=== PATIENT | female | born 1935 | race Caucasian/White ===

== ENCOUNTER 2022-05-07 12:06 | Observation (INO) | payer OTHER, SELFPAY ==
[2022-05-07] VITALS (18 sets, daily range): BP systolic 94–144; BP diastolic 41–74; PULSE 67–101; RESP 9–20; TEMP 36.7–36.8; O2SAT 96–100
--- NOTE | 2022-05-07 | ECG_ITS ---
Measurements Intervals [place] Rate: 68 P: 81 MD: 163 QRS: -15 QRSD: 98 T: 42 QT: 423 QTc: 452 Interpretive Statements SINUS RHYTHM ST-T WAVE ABNORMALITY IN ANTEROLATERAL LEADS- CONSIDER ISCHEMIA BASELINE ARTIFACT- I, II, AVR, AVL, AVF, V1 ABNORMAL ECG NO PREVIOUS ECG AVAILABLE FOR COMPARISON Electronically Signed On 05-07-2022 15:10:29 APPIAN BPM DEVELOPER by Silvano Vasquez D.O.
--- NOTE | ~2022-05-07 | CT_ITS ---
EXAMINATION: CT brain wo con DATE: 05/07/2022 13:42 INDICATION: Syncopal. Altered mental status. TECHNIQUE: Computed tomography (CT) of the head was performed without intravenous contrast. Sagittal and coronal reconstructions were performed. The mA was adjusted according to patient size. Iterative reconstruction technique was employed. The dose-length product was 1362.00 mGy-cm. COMPARISON: None FINDINGS: No acute intracranial hemorrhage, acute infarction or abnormal extra axial fluid collection. Small ol d lacunar infarcts versus prominent perivascular space at the inferior aspects of the bilateral basal ganglia. There is mild to moderate scattered white matter hypoattenuation consistent with chronic sm all vessel ischemic disease. Symmetric prominence of the sulci and ventricles consistent with moderat e age-appropriate diffuse cerebral volume loss. No mass/mass effect. Changes of bilateral intraocular lens replacement. The orbits, paranasal sinuses and mastoid air cells are normal. Intracranial calci fied cerebral atherosclerosis is noted. Moderate to severe spondylosis in the partially visualized ce rvical spine. IMPRESSION: 1. 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 No acute intracranial process. 2. Age-related changes including moderate diffuse volume loss and mild to moderate scattered white ma tter hypoattenuation consistent with chronic small vessel ischemic disease. Reviewed, dictated and finalized at location A. NEWS DIRECTOR IMPRESSION: 1. 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 No acute intracranial process. 2. Age-related changes including moderate diffuse volume loss and mild to moder ate scattered white matter hypoattenuation consistent with chronic small vessel ischemic disease.
--- NOTE | ~2022-05-07 | XR_ITS ---
EXAMINATION: XR chest 1V portable DATE: 05/07/2022 12:51 INDICATION: Syncope. TECHNIQUE: A single frontal view of the chest was obtained. COMPARISON: None. FINDINGS: The patient is rotated to her left. Calcified pulmonary nodules and calcified hilar lymph n odes are consistent with old granulomatous disease. There is no pneumonia, pleural effusion, 4 pneumo thorax. The heart size is normal. Surgical clips in the right upper quadrant are likely from cholecys tectomy. IMPRESSION: 1. No acute cardiopulmonary disease. Reviewed, dictated and finalized at location A. OTECHNICAL SPECIALIST
--- NOTE | 2022-05-07 12:13 | ED.SYNCOPE ---
HPI - Syncope General Chief Complaint: Altered Mental Status Stated Complaint: syncope Source: EMS Mode of arrival: EMS Limitations: dementia History of Present Illness HPI narrative: Patient is an 86-year-old female presenting to the emergency department via EMS for evaluation following a syncopal event. Patient was reportedly sitting at the lunch table at her memory care facility when she had a loss of conscious. Unknown if the patient was sitting or standing. Unknown if there was head trauma. Patient at baseline is oriented to person, not to place or time. Secondary to her dementia she is unable to provide history. Pt with dried emesis on sweater. Report was mostly obtained from EMS paramedics with whom I spoke directly. Patient noted to be slightly hypotensive the time of their arrival 100/50, IV placed and left forearm and IV fluids initiated. Patient's glucose was normal. Other vital signs stable. Patient was awake and alert, mentating at baseline without any focal deficits noted for EMS crew. Per records sent from [facility] where the patient resides, patient with history of anxiety, dementia, diverticulosis, acid reflux without esophagitis, hypertension, irritable bowel syndrome with constipation, and vitamin D deficiency. No known drug allergies. Pt is full code per chart review. Related Data Allergies Allergy/AdvReac Type Severity Reaction Status Date / Time No Known Allergies Allergy Verified 05/07/22 12:54 Review of Systems Review of Systems: ROS unobtainable: Yes unobtainable due to medical condition and unobtainable due to mental status [facility] Social History Social History (Updated 05/07/22 @ 13:00 by Grecia Fonseca MD) Smoking status: Never smoker Alcohol intake: never Substance use: never Living arrangements: care home Gender identity (if verbalized by the patient): Female Exam Narrative: GENERAL: Awake, alert, conversant HEAD: Normocephalic, atraumatic. EYES: PERRLA and EOMI. ENT: Nares clear, no rhinorrhea or epistaxis. Mucous membranes moist. NECK: Supple. CHEST: No respiratory distress, breathing even and non labored HEART: Regular rate, sinus rhythm ABDOMEN:Non distended, non tender EXTREMITIES: Normal range of motion. No edema. SKIN: Warm, dry, no rash. NEURO:No focal deficits. Alert and oriented x1 Course Vital Signs Vital signs: Vital Signs Temperature 36.7 C 05/07/22 12:27 Pulse Rate 74 05/07/22 12:27 Respiratory Rate 14 05/07/22 12:27 Blood Pressure 108/59 L 05/07/22 12:27 Pulse Oximetry 100 05/07/22 12:27 Temperature 36.7 C 05/07/22 18:36 Pulse Rate 80 05/07/22 18:17 Respiratory Rate 18 05/07/22 18:17 Blood Pressure 133/41 L 05/07/22 18:17 Pulse Oximetry 99 05/07/22 18:17 MDM - Syncope MDM Narrative Medical decision making narrative: Patient is an 86-year-old female with a history of dementia presenting to the emergency department for evaluation of witnessed syncope and collapse. At the time of my assessment, patient is awake alert and oriented to person, not to place or time. Apparently this is her baseline. She is noted to be slightly hypotensive but fluid responsive. Blood cultures and lactic acid was drawn. I reviewed the patient's chart from the care home and she has not been seen previously at this facility. Patient with mild leukocytosis with left shift. Her urinalysis is consistent with urinary tract infection. D-dimer is not elevated, thus I do not believe this to be an aortic pathology or consistent with pulmonary embolism. CT of the chest is not indicated. CT head with chronic changes. No severe electrolyte derangement. Patient does have a mild troponin elevation. Unknown etiology for this. Considered arrhythmia causing syncope versus chronic elevation secondary to mild anemia or current infection, no previous baseline on the patient. We will continue to trend this. After th
[2022-05-07 12:48] LABS: Glucose Point of Care 112 mg/dl (65-105)
[2022-05-07 13:05] LABS: Basophils Percent Auto 0.3 % (0.2-1.2); Eosinophils Percent Auto 0.2 % (0-4.4); Hematocrit 43.7 % (37.0-47.0); Hemoglobin 14.7 g/dL (12.0-15.0); Immature Granulocyte Absolute 0.04 K/mm3 (0.00-0.031); Immature Granulocyte Percent A 0.3 % (0-0.5); Immature Platelet Fraction Pct 11.5 % (0.9-11.2); Lymphocytes Absolute Auto 0.84 K/mm3 (0.9-3.2); Lymphocytes Percent Auto 7.1 % (18.3-44.2); Mean Corpuscular HGB Conc 33.6 g/dl (32-36); Mean Corpuscular Hemoglobin 32.8 pg (26-34); Mean Corpuscular Volume 97.5 fl (80-100); Monocytes Absolute Auto 0.7 K/mm3 (0.1-0.6); Monocytes Percent Auto 5.8 % (2.6-8.5); Neutrophils Absolute Auto 10.1 K/mm3 (1.3-6.7); Neutrophils Percent Auto 86.3 % (45.5-73.1); Platelet Count Result 204 k/mm3 (150-375); Red Blood Count 4.48 M/mm3 (4.2-5.4); Red Cell Distribution Width 11.9 % (11.5-14.5); White Blood Count 11.8 K/mm3 (4.5-10.0)
[2022-05-07 13:12] LABS: INR 0.9; Partial Thromboplastin Time 20.3 SECONDS (22.3-36.8); Prothrombin Time 12.1 Seconds (11.1-14.7)
[2022-05-07 13:52] LABS: D Dimer 0.37 ug/mL (<0.48)
[2022-05-07] MEDS: SODIUM CHLORIDE 0.9% IV 500 ML 999 ML IV CONT (14:50)
[2022-05-07 14:57] LABS: Appearance Urine Cloudy (Clear); Bilirubin Urine Negative (Negative); Blood Urine Trace-intact (Negative); Color Urine Yellow (Yellow); Glucose Urine UA Negative (Negative); Ketones Urine Trace mg/dL (Negative); Leukocyte Esterase Ur 3+ LEU/UL (Negative); Nitrate Urine Positive (Negative); Protein Urine 2+ mg/dL (Negative); Specific Grav Ur >= 1.030 (1.001-1.035)
[2022-05-07 15:06] LABS: Bacteria Urine 4+ /hpf; Hyaline Casts Urine 30-49 /lpf; Lactic Acid Reflex 1.2 mmol/L (0.7-2.0); Mucus Urine Heavy /lpf; RBC Urine >75 /hpf (0-2); Squamous Epithelial Cell Urine Few /hpf (Few); WBC Urine >75 /hpf
[2022-05-07 15:08] LABS: Add Urine Microscopic? YES; Alanine Aminotransferase 12 U/L (6-35); Albumin Level 3.9 g/dL (3.5-5.1); Alkaline Phosphatase 53 U/L (38-126); Anion Gap 5 mmol/L (8-16); Aspartate Amino Transferase 20 U/L (14-36); Bilirubin,Total 0.6 mg/dL (0.2-1.3); Blood Urea Nitrogen 22 mg/dL (7-17); Calcium 10.4 mg/dL (8.4-10.2); Carbon Dioxide 29 mmol/L (22-30); Chloride 97 mmol/L (98-107); Estimated CRCL calculation 20 ml/min; Estimated Glomerular Filt Rate 33; Glucose 105 mg/dL (65-110); Potassium 3.9 mmol/L (3.4-5.0); Sodium 131 mmol/L (137-145)
[2022-05-07 15:22] LABS: NT Pro B Type Natriuretic Pept 1540 pg/mL (19.9-100); Troponin I 0.061 ng/mL (0.000-0.034)
--- NOTE | 2022-05-07 16:45 | PC.NURSE ---
Patient seen vomiting in room. EDP Marian notified.
[2022-05-07] MEDS: ONDANSETRON INJ 4 MG/2 ML VIAL IV PUSH ×2 (17:04→23:51)
[2022-05-07 17:27] LABS: SARS-CoV-2 RNA PCR Negative
--- NOTE | 2022-05-07 17:45 | PC.NURSE ---
Patient vomited again in room. EDP Marian notified.
[2022-05-07] MEDS: LORazepam INJ (*CRX) 2 MG/ML VIAL 0.5 MG IV PUSH (18:16)
--- NOTE | 2022-05-07 18:40 | ADMGEN ---
This patient, Irma Massey, was admitted to IMU Room 204-01. Patient/family oriented to hospital policies and general routines including ID bracelet, bed and alarms, visiting hours, pain management, procedures, bathroom and other care routines, personal items, smoking policy, room service/diet, and visiting hours. Information on how to activate the Rapid Response Team has been discussed. Patient/Family are encouraged to report perceived risks to care and to ask questions if they do not understand what they are told or what they should do.
[2022-05-07 19:12] LABS: Troponin I 0.046 ng/mL (0.000-0.034)
--- NOTE | 2022-05-07 20:47 | PM.IMHP ---
H&P: HPI History of Present Illness Date/Time: 05/07/22 20:47 Chief Complaint: syncope Narrative: this is an 86 year old female who resides in a memory care center.She was brought by the ems to be evaluated after she has a syncopal episode. It was unclear if she fell out of the chair or had been standing. It was not witnessed and it was unclear if she hit her head .Her baseline orientation is orientated to person. She has a hx of dementia and is a poor historian.She was afebrile and her bp was 108/59 . She was given iv fluids and her bp responded with the fluids . her wbc was noted to be 11.8.blood sugar 112. sodium 131.Head ct was read as 1. 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 No acute intracranial process. 2. Age-related changes including moderate diffuse volume loss and mild to moderate scattered white matter hypoattenuation consistent with chronic small vessel ischemic disease.Ches xray was read as no acute cardiopulmonary disease. The patient was started on rocephin for a uti . Cardiology was consulted from er due to the syncopal episode.her troponin was elevated at 0.053 She is pierre admiting for observation status on the date of service 05/07/22 Review of Systems Review of Systems: see hpi All systems reviewed & are unremarkable except as noted in HPI and below Constitutional: Constitutional: Reports as per HPI and Reports no additional constitutional complaints Eyes: Eyes: Reports as per HPI and Reports no additional eye complaints ENT: Reports system reviewed and no additional complaints, except as documented and Reports Normal hearing present Cardiovascular: Cardiovascular: Reports no additional cardiovascular complaints Respiratory: Respiratory: Reports no additional respiratory complaints and Reports no additional respiratory complaints Gastrointestinal: Gastrointestinal: Reports as per HPI and Reports no additional gastrointestinal complaints Musculoskeletal: Musculoskeletal: Reports no additional musculoskeletal complaints Integumentary/Breasts: Skin/Breast: Reports system reviewed and no additional complaints, except as docu and Reports as per HPI Neurologic: Reports system reviewed and no additional complaints, except as documented, Reports as per HPI and Reports Normal hearing present Psychiatric: Psychiatric: Reports no additional psychiatric complaints and Reports as per HPI Endocrine: Endocrine: Reports no additional endocrine complaints Hematologic/Lymphatic: Hematologic/Lymphatic: Reports no additional hematologic/lymphatic complaints Allergic/Immunologic: Allergic/Immunologic: Reports no additional allergic/immunologic complaints PMFSH Past Medical History Medical History (Updated 05/08/22 @ 02:00 by Jaqueline Richardson NP) Anxiety Dementia Diverticulosis Hyperlipidemia Hypertension Surgical History Surgical History (Updated 05/08/22 @ 02:00 by Jaqueline Richardson NP) Surgical history unknown Family History Family History (Updated 05/08/22 @ 02:20 by Jaqueline Richardson NP) Unknown No problems noted. Social History Social History (Updated 05/08/22 @ 02:23 by Jaqueline Richardson NP) Social History: She resides at [facility]. Living will stated full code including intubation. son Galdino listed as contact . listed as single and retired Smoking status: Never smoker Alcohol intake: never Substance use: never Living arrangements: alf Gender identity (if verbalized by the patient): Female Meds Home Medications and Allergies Allergies Allergy/AdvReac Type Severity Reaction Status Date / Time No Known Allergies Allergy Verified 05/07/22 12:54 Vital Signs Vital Signs - 24 hr 05/07/22 12:27 05/07/22 13:15 05/07/22 13:15 Temperature 36.7 C Pulse Rate 74 76 71 Respiratory Rate 14 Blood Pressure 108/59 L 94/43 L 96/50 L Pulse Oximetry 100 05/07/22
[2022-05-07] MEDS: SODIUM CHLORIDE 0.9% IV 1,000 ML 125 ML IV CONT (21:13)
[2022-05-07 22:49] LABS: Troponin I 0.053 ng/mL (0.000-0.034)
[2022-05-08] VITALS (13 sets, daily range): BP systolic 127–139; BP diastolic 52–64; PULSE 80–101; RESP 16–22; TEMP 36.4–37.3; O2SAT 18–100
[2022-05-08 04:25] LABS: Basophils Percent Auto 0.1 % (0.2-1.2); Hematocrit 35.3 % (37.0-47.0); Immature Granulocyte Absolute 0.07 K/mm3 (0.00-0.031); Immature Granulocyte Percent A 0.6 % (0-0.5); Lymphocytes Absolute Auto 0.52 K/mm3 (0.9-3.2); Lymphocytes Percent Auto 4.4 % (18.3-44.2); Mean Corpuscular Volume 94.1 fl (80-100); Mean Platelet Volume 11.7 fl (7.4-10.4); Monocytes Absolute Auto 0.4 K/mm3 (0.1-0.6); Monocytes Percent Auto 3.5 % (2.6-8.5); Neutrophils Absolute Auto 10.8 K/mm3 (1.3-6.7); Neutrophils Percent Auto 91.4 % (45.5-73.1); Platelet Count Result 181 k/mm3 (150-375); Red Blood Count 3.75 M/mm3 (4.2-5.4); Red Cell Distribution Width 11.4 % (11.5-14.5); White Blood Count 11.8 K/mm3 (4.5-10.0)
[2022-05-08 04:39] LABS: Alanine Aminotransferase 11 U/L (6-35); Albumin Level 3.2 g/dL (3.5-5.1); Alkaline Phosphatase 48 U/L (38-126); Anion Gap 6 mmol/L (8-16); Aspartate Amino Transferase 18 U/L (14-36); Bilirubin,Total 0.4 mg/dL (0.2-1.3); Blood Urea Nitrogen 20 mg/dL (7-17); Calcium 9.3 mg/dL (8.4-10.2); Carbon Dioxide 25 mmol/L (22-30); Chloride 106 mmol/L (98-107); Estimated CRCL calculation 21 ml/min; Estimated Glomerular Filt Rate 36; Glucose 136 mg/dL (65-110); Magnesium 1.8 mg/dL (1.6-2.3); Potassium 3.7 mmol/L (3.4-5.0); Sodium 137 mmol/L (137-145)
[2022-05-08 04:52] LABS: Troponin I 0.153 ng/mL (0.000-0.034)
[2022-05-08 04:58] LABS: Burr Cells 1+ (NORMAL); Ovalocytes 1+ (NORMAL); Platelet Estimate Adequate (Adequate)
[2022-05-08 04:59] LABS: Schistocytes None Seen (NORMAL)
[2022-05-08] MEDS: ONDANSETRON INJ 4 MG/2 ML VIAL IV PUSH (05:38)
[2022-05-08] MEDS: SODIUM CHLORIDE 0.9% IV 1,000 ML 125 ML IV CONT ×3 (05:38→23:00)
--- NOTE | 2022-05-08 08:00 | ECHO_ITS ---
Patient Info Name: Irma Massey Age: 86 years : 1935 Gender: Female Ht: 63 in Wt: 116 lbs BSA: 1.53 m2 HR: 85 bpm BP: 138 / 53 mmHg Heart Rhythm: Sinus Rhythm Technical Quality: Fair Exam Date: 05/08/2022 7:39 AM Exam Location: [facility] Patient Status: Inpatient Admit Date: 05/07/2022 Staff Ordering Physician: Grecia Fonseca MD Java Lead Developer: Tracy Sanabria RDCS Attending Provider: Parker Salinas MD Referring Physician: Marian BRIONES; Exam Type: CA echo doppler color flow Study Info Indications - elevated troponin, ekg changes Complete two-dimensional, color flow and Doppler transthoracic echocardiogram is performed. Summary 1. Complete two-dimensional, color flow and Doppler transthoracic echocardiogram is performed. 2. Left ventricular chamber dimension is normal. 3. Left ventricular systolic function is hyperdynamic, estimated at >70%. 4. There is mildly increased left ventricular wall thickness. 5. The left ventricular diastolic function is grade I diastolic dysfunction. 6. Right ventricular systolic function is normal. 7. There is moderate aortic valve calcification. 8. The mitral valve annulus is mildly calcified. 9. There is small anterior pericardial effusion. Left Ventricle Left ventricular chamber dimension is normal. Left ventricular systolic function is hyperdynamic, estimated at >70%. There is mildly increased left ventricular wall thickness. The left ventricular diastolic function is grade I diastolic dysfunction. Right Ventricle Right ventricular chamber dimension is normal. Right ventricular systolic function is normal. Left Atria Left atrial chamber dimension is normal. Right Atria Right atrial chamber dimension is normal. Atrial Septum Intact interatrial septum visualized by color flow imaging. Aortic Valve The aortic valve is probable trileaflet. There is no aortic valve stenosis. There is no aortic valve regurgitation. There is moderate aortic valve calcification. Pulmonic Valve The pulmonic valve is not well visualized. Mitral Valve The mitral valve has normal leaflets. There is no mitral valve stenosis. There is trace mitral valve regurgitation. The mitral valve annulus is mildly calcified. Tricuspid Valve There is trace tricuspid valve regurgitation. Pericardium/Pleural There is small anterior pericardial effusion. Inferior Vena Cava Normal inferior vena cava with >50% collapse upon inspiration consistent with normal right atrial pressure, 3 mmHg. Aorta The aortic root size at the sinus of Valsalva is normal. Left Ventricular Outflow Tract Name Value Normal LVOT 2D LVOT Diameter 2.0 cm LVOT Doppler LVOT Peak Gradient 7 mmHg LVOT Mean Gradient 3 mmHg LVOT VTI 24 cm LVOT VTI/AV VTI Ratio 0.7 LVOT Stroke Volume 77 ml LVOT CO 7.6 l/min LVOT CI 5.0 l/min/m2 Pulmonic Valve ---------
--- NOTE | 2022-05-08 10:46 | PM.CNCAR ---
Assessment and Plan Assessment and plan (1) Dementia: Code(s): F03.90 - Unspecified dementia, unspecified severity, without behavioral disturbance, psychotic disturbance, mood disturbance, and anxiety Status: Acute Assessment and Plan: Significant dementia (2) Elevated troponin: Code(s): R77.8 - Other specified abnormalities of plasma proteins Status: Acute Assessment and Plan: Not related to acute coronary syndrome. Likely secondary predominantly to a combination of UTI and CKD (3) Acute UTI: Code(s): N39.0 - Urinary tract infection, site not specified Status: Acute Assessment and Plan: On antibiotic (4) Syncope and collapse: Code(s): R55 - Syncope and collapse Status: Acute Assessment and Plan: Uncertain if she truly had a syncopal episode or not. She is being treated for urinary tract infection. 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 Check a 2D echocardiogram Doppler. History of Present Illness History of Present Illness Consult date/time: 05/08/22 10:46 Requesting physician: Grecia Fonseca MD Consult reason: Other (Syncope, elevated troponin) Reason For Visit: Syncope & Collapse, Sepsis, UTI Narrative: Date of service 05/08/2022 Reason for consultation syncope, elevated troponins Requesting provider: Dr. Fonseca History: Patient is a 86-year-old female who came to hospital following a possible syncopal episode. Details are found through reviewing the chart record as the patient is awake but currently not verbal. She is reportedly a and O x1. She has significant dementia at baseline. It is uncertain if this patient passed out or fell but reportedly was having altered mental status and was brought to the hospital. Initial troponins were minimally elevated. EKG shows some anterior T-wave abnormalities but she was not complaining of any chest pain. She is found have a urinary tract infection and has received antibiotics. No documented history of chest pain, shortness of breath, paroxysmal nocturnal dyspnea, orthopnea, edema or palpitations. Review of Systems Review of Systems: All systems reviewed & are unremarkable except as noted in HPI and below Constitutional: Constitutional: Denies body ache(s) Eyes: Eyes: Denies blurry vision ENT: Reports Normal hearing present Cardiovascular: Cardiovascular: Denies chest pain Respiratory: Respiratory: Denies hemoptysis Gastrointestinal: Gastrointestinal: Denies hematemesis Genitourinary: Genitourinary: Denies hematuria Musculoskeletal: Musculoskeletal: Denies arthralgias Integumentary/Breasts: Skin/Breast: Denies erythema Neurologic: Denies vertigo Psychiatric: Psychiatric: Denies anxiety Endocrine: Endocrine: Denies excessive sweating Hematologic/Lymphatic: Hematologic/Lymphatic: Denies easy bleeding Allergic/Immunologic: Allergic/Immunologic: Denies GI upset with certain foods and Denies lip swelling PMFSH Past Medical History Medical History (Updated 05/08/22 @ 10:51 by Dillan Borges MD) Anxiety Dementia Diverticulosis Hyperlipidemia Hypertension Surgical History Surgical History (Updated 05/08/22 @ 02:00 by Jaqueline Richardson NP) Surgical history unknown Family History Family History Unknown No problems noted. Social History Social History (Updated 05/08/22 @ 02:23 by Jaqueline Richardson NP) Social History: She resides at [facility]. Living will stated full code including intubation. son Galdino listed as contact . listed as single and retired Smoking status: Never smoker Alcohol intake: never Substance use: never Living arrangements: prison Gender identity (if verbalized by the patient): Female Comments Family medical history: No documented coronary disease M
[2022-05-08] MEDS: FAMOTIDINE 20 MG/2 ML VIAL IV PUSH ×2 (11:10→20:53)
--- NOTE | 2022-05-08 16:21 | PCPTNOTE ---
Attempted pt evaluation, pt unarousable. RN aware. Will follow.
--- NOTE | 2022-05-08 16:59 | PM.IMPN ---
Progress Note: A&P Assessment and Plan (1) Syncope and collapse: Code(s): R55 - Syncope and collapse Status: Acute Assessment and Plan: -Check orthostatic bp every shift -may be related to infectious process -could be related to dehydration - continue to monitor on tele -ed consulted cardiology - echo ordered carotid dopplers ordered 05/08/2022 interval history: 86-year-old female presented with syncopal episode unfortunately unable to provide any review of symptoms, patient was seen by Cardiology unable to assess as patient is not able to provide details, consent the patient may have UTI resulting in in her symptoms, according to the family patient is not eating not taking her med and not cooperating. patient has end-stage dementia, today discussed with the patient's son who is POA, will consult hospice for further recommendation, (2) Acute UTI: Code(s): N39.0 - Urinary tract infection, site not specified Status: Acute Assessment and Plan: -rocephin ordered - preston antibiotics to cultures -blood and urine cultures pending (3) Nausea & vomiting: Code(s): R11.2 - Nausea with vomiting, unspecified Status: Acute Assessment and Plan: - continue with iv fluids -continue with zofran - iv pepcid (4) Hypertension: Code(s): I10 - Essential (primary) hypertension Status: Acute Assessment and Plan: - Home medications have not been verified and her bp is low tonight . restart bp home medications if bp allows . (5) Dementia: Code(s): F03.90 - Unspecified dementia, unspecified severity, without behavioral disturbance, psychotic disturbance, mood disturbance, and anxiety Status: Acute Assessment and Plan: Patient is typically o and times person (6) Hyperlipidemia: Code(s): E78.5 - Hyperlipidemia, unspecified Status: Acute Assessment and Plan: - Continue with home medications once they have been reviewed. Subjective Date/time seen: 05/08/22 16:59 syncope HPI-Narrative: this is an 86 year old female who resides in a memory care center.She was brought by the ems to be evaluated after she has a syncopal episode. It was unclear if she fell out of the chair or had been standing. It was not witnessed and it was unclear if she hit her head .Her baseline orientation is orientated to person. She has a hx of dementia and is a poor historian.She was afebrile and her bp was 108/59 . She was given iv fluids and her bp responded with the fluids . her wbc was noted to be 11.8.blood sugar 112. sodium 131.Head ct was read as??1. 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 No acute intracranial process. 2. Age-related changes including moderate diffuse volume loss and mild to moderate scattered white matter hypoattenuation consistent with chronic small vessel ischemic disease.Ches xray was read as no acute cardiopulmonary disease. The patient was started on rocephin? for a uti . Cardiology was consulted from er due to the syncopal episode.her troponin was elevated at 0.053 She is pierre admiting for observation status on the date of service 05/07/22 05/08/2022 interval history: 86-year-old female presented with syncopal episode unfortunately unable to provide any review of symptoms, patient was seen by Cardiology unable to assess as patient is not able to provide details, consent the patient may have UTI resulting in in her symptoms, according to the family patient is not eating not taking her med and not cooperating. patient has end-stage dementia, today discussed with the patient's son who is POA, will consult hospice for further recommendation, Review of Systems Review of Systems: ROS unobtainable: Yes unobtainable due to mental status Exam Narrative: elderly frail Patient is comfortable, NAD HEENT: eyes are clear and none icteric LUNGS: normal
[2022-05-09] VITALS (9 sets, daily range): BP systolic 105–148; BP diastolic 44–82; PULSE 81–102; RESP 16–20; TEMP 36.4–37.4; O2SAT 98–100; BMI 20.6
[2022-05-09 04:22] LABS: Hematocrit 32.5 % (37.0-47.0); Hemoglobin 11.1 g/dL (12.0-15.0); Mean Corpuscular HGB Conc 34.2 g/dl (32-36); Mean Corpuscular Volume 93.7 fl (80-100); Mean Platelet Volume 11.8 fl (7.4-10.4); Platelet Count Result 165 k/mm3 (150-375); Red Blood Count 3.47 M/mm3 (4.2-5.4); Red Cell Distribution Width 11.8 % (11.5-14.5); White Blood Count 14.4 K/mm3 (4.5-10.0)
[2022-05-09 04:48] LABS: Anion Gap 4 mmol/L (8-16); Blood Urea Nitrogen 17 mg/dL (7-17); Calcium 8.9 mg/dL (8.4-10.2); Carbon Dioxide 24 mmol/L (22-30); Chloride 112 mmol/L (98-107); Estimated CRCL calculation 26 ml/min; Estimated Glomerular Filt Rate 47; Glucose 100 mg/dL (65-110); Magnesium 1.7 mg/dL (1.6-2.3); Potassium 3.2 mmol/L (3.4-5.0); Sodium 140 mmol/L (137-145)
[2022-05-09] MEDS: SODIUM CHLORIDE 0.9% IV 1,000 ML 125 ML IV CONT ×2 (06:40→08:23)
[2022-05-09] MEDS: FAMOTIDINE 20 MG/2 ML VIAL IV PUSH (08:22)
--- NOTE | 2022-05-09 09:12 | PM.PNCARD ---
Progress Note: A&P Assessment and Plan (1) Dementia: Code(s): F03.90 - Unspecified dementia, unspecified severity, without behavioral disturbance, psychotic disturbance, mood disturbance, and anxiety Status: Acute Assessment and Plan: Significant dementia (2) Elevated troponin: Code(s): R77.8 - Other specified abnormalities of plasma proteins Status: Acute Assessment and Plan: Not related to acute coronary syndrome. Likely secondary predominantly to a combination of UTI and CKD (3) Acute UTI: Code(s): N39.0 - Urinary tract infection, site not specified Status: Acute Assessment and Plan: On antibiotic (4) Syncope and collapse: Code(s): R55 - Syncope and collapse Status: Acute Assessment and Plan: Uncertain if she truly had a syncopal episode or not. She is being treated for urinary tract infection. Continue laboratory monitor for now but obviously conservative approach is most appropriate given her advanced dementia and age. Echocardiogram was unremarkable. (5) Electrolyte imbalance: Code(s): E87.8 - Other disorders of electrolyte and fluid balance, not elsewhere classified Status: Acute Assessment and Plan: Will DC IV fluids as to not cause iatrogenic volume overload. KCL 40 mEq p.o. x1. 2 mg IV magnesium. Discontinue telemetry Cardiology to sign off Subjective Date/time seen: 05/09/22 09:12 Interval history: 86-year-old with altered mental status, possible syncope, elevated troponin Date of service 05/09/2022: She is somnolent but arousable. No active compliant Review of Systems Review of Systems: All systems reviewed & are unremarkable except as noted in HPI and below Constitutional: Constitutional: Denies body ache(s) and Denies excessive sweating Eyes: Eyes: Denies blurry vision ENT: Reports Normal hearing present, Denies vertigo and Denies lip swelling Cardiovascular: Cardiovascular: Denies chest pain Respiratory: Respiratory: Denies hemoptysis Gastrointestinal: Gastrointestinal: Denies hematemesis Genitourinary: Genitourinary: Denies hematuria Musculoskeletal: Musculoskeletal: Denies arthralgias Integumentary/Breasts: Skin/Breast: Denies erythema Neurologic: Reports Normal hearing present and Denies vertigo Psychiatric: Psychiatric: Denies anxiety Endocrine: Endocrine: Denies excessive sweating Hematologic/Lymphatic: Hematologic/Lymphatic: Denies easy bleeding Allergic/Immunologic: Allergic/Immunologic: Denies GI upset with certain foods and Denies lip swelling Exam Narrative: Awake in no acute distress appears stated age Const: General: comfortable and no acute distress HENMT: Face/Nose/Sinus: Normal nares present Mouth: Yes moist mucous membranes Eyes: General: appearance normal, both eyes and all related structures Sclera: sclerae normal Neck: Neck: supple Carotids: no bruits Chest: Other: No reproducible chest wall pain to palpation Resp: Effort & Inspection: normal respiratory effort Cardio: Rate: regular rate Rhythm: regular rhythm Heart sounds: Murmur heart sound present GI: Inspection: non-distended Auscultation: normal bowel sounds Skin: General skin exam: normal color Neuro: Cranial nerves: Yes Normal hearing present Sensory Exam: normal sensation Extrem: General: normal to inspection Psych: Attitude: not belligerent Objective Data Vital Signs Vital Signs: Vital Signs - 24 hr 05/08/22 10:00 05/08/22 12:00 05/08/22 12:00 Temperature 36.6 C Pulse Rate 94 96 84 Respiratory Rate 18 Blood Pressure 135/62 Pulse Oximetry 18 L Oxygen Delivery 05/08/22 12:00 05/08/22 14:00 05/08/22 16:00 Temperature Pulse Rate 80 82 Respiratory Rate Blood Pressure Pulse Oximetry 100 Oxygen Delivery Room Air 05/08/22 16:00 05/08/22 16:00 05/08/22 18:00 Temperature 36.6 C Pulse Rate 88 90 Respiratory Rate 16 Blo
--- NOTE | 2022-05-09 10:20 | PCOTNOTE ---
Attempted OT evaluation, patient currently has bedrest orders in at this time. Attempted to call ordering MD with no answer. Will follow.
--- NOTE | 2022-05-09 10:33 | PCOTNOTE ---
Spoke with Dr. Mccoy who reports to discharge OT evaluation orders at this time due to patient condition.
--- NOTE | 2022-05-09 10:43 | PCPTNOTE ---
Spoke with Dr. Mccoy who reports to discharge PT evaluation orders at this time due to patient condition.
--- NOTE | 2022-05-09 15:10 | PM.DS ---
DS: Admitting Diagnosis Discharge Date 05/09/2022 Admitting Diagnosis syncope DS: Discharge Diagnosis Discharge Diagnosis (1) Syncope and collapse: Code(s): R55 - Syncope and collapse Status: Acute Assessment and Plan: -Check orthostatic bp every shift -may be related to infectious process -could be related to dehydration - continue to monitor on tele -ed consulted cardiology - echo ordered carotid dopplers ordered 05/08/2022 interval history: 86-year-old female presented with syncopal episode unfortunately unable to provide any review of symptoms, patient was seen by Cardiology unable to assess as patient is not able to provide details, consent the patient may have UTI resulting in in her symptoms, according to the family patient is not eating not taking her med and not cooperating. patient has end-stage dementia, today discussed with the patient's son who is POA, will consult hospice for further recommendation, (2) Acute UTI: Code(s): N39.0 - Urinary tract infection, site not specified Status: Acute Assessment and Plan: -rocephin ordered - preston antibiotics to cultures -blood and urine cultures pending (3) Nausea & vomiting: Code(s): R11.2 - Nausea with vomiting, unspecified Status: Acute Assessment and Plan: - continue with iv fluids -continue with zofran - iv pepcid (4) Hypertension: Code(s): I10 - Essential (primary) hypertension Status: Acute Assessment and Plan: - Home medications have not been verified and her bp is low tonight . restart bp home medications if bp allows . (5) Dementia: Code(s): F03.90 - Unspecified dementia, unspecified severity, without behavioral disturbance, psychotic disturbance, mood disturbance, and anxiety Status: Acute Assessment and Plan: Patient is typically o and times person (6) Hyperlipidemia: Code(s): E78.5 - Hyperlipidemia, unspecified Status: Acute Assessment and Plan: - Continue with home medications once they have been reviewed. DS: Summary Hospital Course Reason for hospitalization: syncope Narrative: this is an 86 year old female who resides in a memory care center.She was brought by the ems to be evaluated after she has a syncopal episode. It was unclear if she fell out of the chair or had been standing. It was not witnessed and it was unclear if she hit her head .Her baseline orientation is orientated to person. She has a hx of dementia and is a poor historian.She was afebrile and her bp was 108/59 . She was given iv fluids and her bp responded with the fluids . her wbc was noted to be 11.8.blood sugar 112. sodium 131.Head ct was read as??1. 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 No acute intracranial process. 2. Age-related changes including moderate diffuse volume loss and mild to moderate scattered white matter hypoattenuation consistent with chronic small vessel ischemic disease.Ches xray was read as no acute cardiopulmonary disease. The patient was started on rocephin? for a uti . Cardiology was consulted from er due to the syncopal episode.her troponin was elevated at 0.053 She is pierre admiting for observation status on the date of service 05/07/22 Hospital Course: 86-year-old female presented with syncopal episode unfortunately unable to provide any review of symptoms,? patient was seen by Cardiology unable to assess as patient is not able to provide details,? consent the patient may have UTI resulting in in her symptoms,? according to the family patient is not eating not taking her med and not cooperating. patient has end-stage dementia, today discussed with the patient's son who is POA,? will? consult hospice for further recommendation, Will discharge patient today will be admitted under hospice care Time Spent with Patient Time attestation: Total time spent serena
== END 2022-05-09 20:35 | disposition hospice, home (50) ==
LOC: ANHED 17:10 → ANHIMU 05-09 15:10
PROVIDERS: Nurse Practitioner; Admitting Provider Internal Medicine; Emergency Provider Emergency Medicine; Visit Provider Family Medicine
DX: R55 Syncope and collapse (principal); I95.9 Hypotension, unspecified; N39.0 Urinary tract infection, site not specified; R11.2 Nausea with vomiting, unspecified; I10 Essential (primary) hypertension; F03.90 Unspecified dementia, unspecified severity, without behavioral disturbance, psychotic disturbance, mood disturbance, and anxiety; E78.5 Hyperlipidemia, unspecified; I08.0 Rheumatic disorders of both mitral and aortic valves; D72.829 Elevated white blood cell count, unspecified; Z20.822 Contact with and (suspected) exposure to COVID-19; R06.02 Shortness of breath; R77.8 Other specified abnormalities of plasma proteins; R94.31 Abnormal electrocardiogram [ECG] [EKG]; F41.9 Anxiety disorder, unspecified
CPT/HCPCS: 36415; 51701; 70450; 71045; 80048; 80053; 81001; 82948; 83605; 83735; 83880; 84443; 84484; 85025; 85027; 85055; 85380; 85610; 85730; 87040; 87086; 87088; 93005; 93306; 96361; 96365; 96366; 96375; 96376; 99285; G0378; J0696; J2060; J2405; J7030; J7040; U0003; U0005